=== PATIENT | female | born 1930 | race Caucasian/White ===

== ENCOUNTER 2021-01-04 15:24 | Emergency (ER) | payer MEDICARE ==
[~2021-01-04 15:24] MED LIST: ANASTROZOLE1 MG PO; ANTIVERT25 MG PO; ASPIRIN CHEWABL81 MG PO; BENAZEPRIL HCL20 MG PO; CALCIUM600 MG PO; EXELON 9.5MG9.5 MG TD; FOLIC ACID1 MG PO; MACROBID100 MG PO; MELOXICAM15 MG PO; NORCO 5-325 TA1 EACH PO; PRILOSEC20 MG PO; PYRIDIUM100 MG PO; TRIAMTERENE-HC1 EAC1 PO; VITAMIN B-121000 MC1 PO; VITAMIN D-40400 UNIT PO; ZOFRAN8 MG PO
[2021-01-04 17:53] LABS: BASOPHIL 0.7 % (0-2); HCT 32.6 % (37.0-47.0); HGB 10.6 g/dl (12.5-16.0); LYMPHOCYTE 18.9 % (15-48); MCH 29.2 pg (25.0-31.0); MCHC 32.5 g/dL (32.0-36.0); MCV 89.8 fL (78.0-100.0); MONOCYTE 7.9 % (0-12); MPV 9.4 fL (6.0-9.5); NEUTROPHIL 71.1 % (41-80); NRBC 0; PLT 329 K/uL (150-400); RBC 3.63 M/uL (4.20-5.40); RDW 14.6 % (11.5-14.0); WBC 8.1 K/uL (4.0-10.5)
[2021-01-04 18:01] LABS: BILIRUBIN NEGATIVE (NEGATIVE); BLOOD NEGATIVE Ery/uL (NEGATIVE); CLARITY CLEAR (CLEAR); COLOR YELLOW (YELLOW); GLUCOSE (U) NORMAL (NORMAL); LEUKOCYTES NEGATIVE Leu/uL (NEGATIVE); NITRITE NEGATIVE (NEGATIVE); PROTEIN NEGATIVE (NEGATIVE); UROBILINOGEN 0.2 mg/dL (0.2-1.0)
[2021-01-04 18:02] LABS: INR 1.1 (0.9-1.2); PROTHROMBIN TIME 13.5 SECONDS (11.4-13.6); PTT 30.9 SECONDS (22.2-34.7)
[2021-01-04 18:15] LABS: ALBUMIN 3.1 g/dL (3.4-5.0); BILIRUBIN - TOTAL 0.5 mg/dL (0.2-1.0); BUN/CREAT RATIO (CALC) 20.6 RATIO; CREATININE 1.55 mg/dL (0.51-0.95); GLOBULIN (CALCULATION) 4.1 g/dL; POTASSIUM 3.3 mmol/L (3.5-5.1); TOTAL PROTEIN 7.2 g/dL (6.4-8.2)
[2021-01-04] MEDS ORDERED: PERCOCET 5-3251 EACH PO (21:31)
[2021-01-04 21:40] LABS: CORONAVIRUS 2019 SARS-COV-2 NEGATIVE (NEGATIVE); INFLUENZA A NAA NEGATIVE (NEGATIVE)
== END 2021-01-04 22:10 | disposition home or self-care (01) ==
LOC: FER 15:24
PROVIDERS: Emergency Medicine
DX: C41.9 Malignant neoplasm of bone and articular cartilage, unspecified (principal); M84.48XA Pathological fracture, other site, initial encounter for fracture; I49.3 Ventricular premature depolarization; Z85.3 Personal history of malignant neoplasm of breast; Z88.0 Allergy status to penicillin; Z20.822 Contact with and (suspected) exposure to COVID-19
CPT/HCPCS: 36415; 71250; 72128; 72131; 80053; 81003; 84145; 85025; 85610; 85730; 87088; 93005; 96374; 96375; J1170; J2405; U0002